=== PATIENT | female | born 1955 | race Caucasian/White ===

== ENCOUNTER → 2023-12-14 | Outpatient (CLI) | payer OTHER ==
[~2023-12-14] MED LIST: BENICAR
[2023-12-15 08:07] LABS: Homocyst(e)ine 12.8 umol/L (0.0-17.2)
[2023-12-15 14:06] LABS: Albumin 3.3 g/dL (2.9-4.4); Alpha-1-Globulin 0.3 g/dL (0.0-0.4); Alpha-2-Globulin 0.7 g/dL (0.4-1.0); Gamma Globulin 0.9 g/dL (0.4-1.8); Globulin Total 2.8 g/dL (2.2-3.9); Protein Total Serum 6.1 g/dL (6.0-8.5)
[2023-12-20 08:06] LABS: Methylmalonic Acid 189 nmol/L (0-378)
== END | disposition home or self-care (01) ==
LOC: LAB 07:01
PROVIDERS: ATTEND Psychiatry & Neurology Neurology
DX: G62.2 Polyneuropathy due to other toxic agents (principal)
CPT/HCPCS: 36415; 83090; 84155; 84165; 84439; 84443